=== PATIENT | female | born 1960 | race Caucasian/White ===

== ENCOUNTER → 2017-04-02 | Outpatient (CLI) | payer BC ==
--- NOTE | 2017-04-03 12:02 | MM ---
Reason for exam: screening (asymptomatic). Last mammogram was performed 1 year ago. History: Patient is postmenopausal. Family history of breast cancer in aunt. Took hormonal contraceptives for 8 years beginning at age 40. Taking estrogen for 8 years beginning at age 48. Physical Findings: A clinical breast exam by your physician is recommended on an annual basis and results should be correlated with mammographic findings. MG Screening Mammo w CAD Bilateral CC and MLO view(s) were taken. Prior study comparison: April 01, 2016, bilateral MG screening mammo w CAD. March 29, 2015, bilateral MG screening mammo w CAD. March 20, 2014, bilateral MG screening mammo w CAD. The breast tissue is heterogeneously dense. This may lower the sensitivity of mammography. Finding: There is a 4 mm circumscribed round mass located 4.8 cm from the nipple in the middle position of the left breast. Asymmetric breast tissue in the left upper breast, stable since 2012. New finding since April 01, 2016, March 29, 2015, and March 20, 2014. ASSESSMENT: Incomplete: need additional imaging evaluation, BI-RAD 0 RECOMMENDATION: Special view mammogram of the left breast. If lesion persists on supplemental views, image directed ultrasound is recommended. [facility] will attempt to contact patient to return for supplemental views and ultrasound if indicated.
== END | disposition home or self-care (01) ==
LOC: RADMAMWWP 06:54
PROVIDERS: ATTEND Family Medicine
DX: Z12.31 Encounter for screening mammogram for malignant neoplasm of breast (principal)

== ENCOUNTER → 2017-04-16 | Outpatient (CLI) | payer BC ==
--- NOTE | 2017-04-17 09:02 | MM ---
Reason for exam: additional evaluation requested from abnormal screening. Last mammogram was performed less than 1 month ago. History: Patient is postmenopausal. Family history of breast cancer in aunt. Took hormonal contraceptives for 8 years beginning at age 40. Taking estrogen for 8 years beginning at age 48. Physical Findings: Nurse did not find any significant physical abnormalities on exam. MG 3D Work Up W/Cad LT Spot compression CC, spot compression MLO, LM, and ML view(s) were taken of the left breast. Prior study comparison: April 02, 2017, bilateral MG screening mammo w CAD. April 01, 2016, bilateral MG screening mammo w CAD. Finding: There is a 5 mm circumscribed round mass in the middle position of the left breast persists. These results were verbally communicated with the patient and result sheet given to the patient on 04/16/17. ASSESSMENT: Incomplete: need additional imaging evaluation, BI-RAD 0 RECOMMENDATION: Ultrasound of the left breast.
--- NOTE | 2017-04-17 09:04 | USB ---
Reason for exam: additional evaluation requested from abnormal screening. History: Patient is postmenopausal. Family history of breast cancer in aunt. Took hormonal contraceptives for 8 years beginning at age 40. Taking estrogen for 8 years beginning at age 48. US Breast Workup Limited LT Left breast ultrasound demonstrates a 0.4 x 0.4 x 0.3cm round, cystic lesion at 12 o'clock. Simple cyst, believed to correspond to mammographic abnormality. These results were verbally communicated with the patient and result sheet given to the patient on 04/16/17. ASSESSMENT: Benign, BI-RAD 2 RECOMMENDATION: Return to routine screening mammogram schedule for both breasts.
== END | disposition home or self-care (01) ==
LOC: RADMAMWWP 14:43
PROVIDERS: ATTEND Family Medicine
DX: R92.8 Other abnormal and inconclusive findings on diagnostic imaging of breast (principal)
CPT/HCPCS: 77065; 76642; G0279

== ENCOUNTER → 2017-09-22 | Outpatient (CLI) | payer BC ==
[2017-09-22 09:27] LABS: Basophils # (A) 0.1 k/uL (0-0.2); Basophils % (A) 2 %; Eosinophils # (A) 0.7 k/uL (0-0.7); Eosinophils % (A) 11 %; HCT 44.9 % (34.0-46.0); HGB 15.1 gm/dL (11.4-16.0); Lymphocytes # (A) 1.9 k/uL (1.0-4.8); Lymphocytes % (A) 30 %; MCH 30.9 pg (25.0-35.0); MCHC 33.7 g/dL (31.0-37.0); MCV 91.7 fL (80.0-100.0); Monocytes # (A) 0.3 k/uL (0-1.0); Monocytes % (A) 5 %; Neutrophils # (A) 3.3 k/uL (1.3-7.7); Neutrophils % (A) 50 %; Platelet Count 311 k/uL (150-450); RBC 4.89 m/uL (3.80-5.40); RDW 12.7 % (11.5-15.5); WBC 6.5 k/uL (3.8-10.6)
--- NOTE | 2017-09-22 09:28 | XR ---
EXAMINATION TYPE: XR chest 2V DATE OF EXAM: 09/22/2017 COMPARISON: NONE HISTORY: Chest pain due to cough. TECHNIQUE: Frontal and lateral views of the chest are obtained. FINDINGS: There is no focal air space opacity, pleural effusion, or pneumothorax seen. The cardiac silhouette size is within normal limits. Underlying S-shaped scoliosis is present. Cholecystectomy cl ips are noted. IMPRESSION: No suspicious acute cardiopulmonary process.
[2017-09-22 10:03] LABS: Appearance,Urine Clear (Clear); Bacteria,Urine Occasional /hpf; Bilirubin,Urine Negative (Negative); Blood,Urine Negative (Negative); Color,Urine Light Yellow; Glucose,Urine (UA) Negative (Negative); Ketones,Urine Negative (Negative); Leukocyte Esterase,Urine Moderate (Negative); Nitrite,Urine Negative (Negative); PH, Urine 6.5 (5.0-8.0); Protein,Urine Negative (Negative); RBC,Urine <1 /hpf (0-5); Specific Gravity,Urine 1.008 (1.001-1.035); Squamous Epithelial Cell,Urine 4 /hpf (0-4); Urobilinogen,Urine <2.0 mg/dL (<2.0); WBC,Urine 4 /hpf (0-5)
[2017-09-22 17:39] LABS: Beta 2 Microglobulin 1.84 mg/L (0.61-2.37)
[2017-09-23 11:25] LABS: Immunoglobulin M 28.2 mg/dL (40.0-280.0)
== END | disposition home or self-care (01) ==
LOC: LABWHC1 08:33
PROVIDERS: ATTEND Otolaryngology
DX: R07.81 Pleurodynia (principal); R21 Rash and other nonspecific skin eruption; R53.83 Other fatigue
CPT/HCPCS: 36415; 71046; 81001; 82232; 82784; 85025

== ENCOUNTER → 2017-10-17 | Outpatient (CLI) | payer BC | END | disposition home or self-care (01) | LOC: LABWHC1 08:40 | PROVIDERS: ATTEND Family Medicine | DX: E83.2 Disorders of zinc metabolism (principal) | CPT/HCPCS: 36415; 84630 ==

== ENCOUNTER → 2018-04-20 | Outpatient (CLI) | payer BC ==
--- NOTE | 2018-04-24 10:01 | MM ---
Reason for exam: screening (asymptomatic). Last mammogram was performed 1 year ago. History: Patient is postmenopausal. Family history of breast cancer in maternal aunt. Took hormonal contraceptives for 8 years beginning at age 40. Took estrogen for 8 years beginning at age 48. MG Screening Mammo w CAD Bilateral CC and MLO view(s) were taken. Prior study comparison: April 16, 2017, left breast MG 3d work up w/cad LT. April 02, 2017, bilateral MG screening mammo w CAD. The breast tissue is heterogeneously dense. This may lower the sensitivity of mammography. No significant changes when compared with prior studies. ASSESSMENT: Benign, BI-RAD 2 RECOMMENDATION: Routine screening mammogram of both breasts in 1 year.
== END | disposition home or self-care (01) ==
LOC: RADMAMWWP 14:41
PROVIDERS: ATTEND Family Medicine
DX: Z12.31 Encounter for screening mammogram for malignant neoplasm of breast (principal); Z80.3 Family history of malignant neoplasm of breast
CPT/HCPCS: 77067

== ENCOUNTER → 2020-12-28 | Outpatient (CLI) | payer BC ==
--- NOTE | 2021-01-01 08:31 | MM ---
Reason for exam: screening (asymptomatic). Last mammogram was performed 2 years and 8 months ago. History: Patient is postmenopausal. Family history of breast cancer in maternal aunt. Took hormonal contraceptives for 8 years beginning at age 40. Took estrogen for 8 years beginning at age 48. Physical Findings: A clinical breast exam by your physician is recommended on an annual basis and results should be correlated with mammographic findings. MG Screening Mammo w CAD Bilateral CC and MLO view(s) were taken. Prior study comparison: April 20, 2018, bilateral MG screening mammo w CAD. April 02, 2017, bilateral MG screening mammo w CAD. April 01, 2016, bilateral MG screening mammo w CAD. The breast tissue is heterogeneously dense. This may lower the sensitivity of mammography. No significant changes when compared with prior studies. ASSESSMENT: Benign, BI-RAD 2 RECOMMENDATION: Routine screening mammogram of both breasts in 1 year.
== END | disposition home or self-care (01) ==
LOC: RADMAMWWP 16:14
PROVIDERS: ATTEND Family Medicine
DX: Z12.31 Encounter for screening mammogram for malignant neoplasm of breast (principal); Z78.0 Asymptomatic menopausal state; Z80.3 Family history of malignant neoplasm of breast
CPT/HCPCS: 77067

== ENCOUNTER → 2022-01-09 | Outpatient (CLI) | payer BC ==
--- NOTE | 2022-01-09 11:40 | MM ---
Reason for Exam: Screening (asymptomatic). Last mammogram was performed 1 year(s) and 1 month(s) ago. Patient History: Menarche at age 9. First Full-Term at age 18. Hysterectomy at age 28. Postmenopausal. Estrogen, starting at age 48 for 8 years. Hormonal Contraceptives, starting at age 40 for 8 years. Maternal aunt had breast cancer. Mother had ovarian cancer, age 67. Risk Values: Tiffanie 5 year model risk: 1.5%. NCI Lifetime model risk: 6.6%. Prior Study Comparison: 04/16/2017 Left Diagnostic Mammogram, [facility]. 04/20/2018 Bilateral Screening Mammogram, [facility]. 12/28/2020 Bilateral Screening Mammogram, [facility]. Tissue Density: The breast tissue is heterogeneously dense. This may lower the sensitivity of mammography. Findings: Analyzed By CAD. There is no suspicious group of microcalcifications or new suspicious mass in either breast. No significant change from prior exams. Overall Assessment: Negative, BI-RAD 1 Management: Screening Mammogram of both breasts in 1 year. A clinical breast exam by your physician is recommended on an annual basis and results should be correlated with mammographic findings. Electronically signed and approved by: Villa Mccarty D.O.
== END | disposition home or self-care (01) ==
LOC: RADMAMWWP 07:11
PROVIDERS: ATTEND Family Medicine
DX: Z12.31 Encounter for screening mammogram for malignant neoplasm of breast (principal); Z78.0 Asymptomatic menopausal state; Z80.3 Family history of malignant neoplasm of breast
CPT/HCPCS: 77067

== ENCOUNTER → 2023-01-12 | Outpatient (CLI) | payer BC ==
--- NOTE | 2023-01-12 08:47 | MM ---
Reason for Exam: Screening (asymptomatic). Last screening mammogram was performed 12 month(s) ago. Patient History: Menarche at age 9. First Full-Term at age 18. Hysterectomy at age 28. Postmenopausal. Estrogen, starting at age 48 for 8 years. Hormonal Contraceptives, starting at age 40 for 8 years. Maternal aunt had breast cancer. Mother had ovarian cancer, age 67. Risk Values: Tiffanie 5 year model risk: 1.6%. NCI Lifetime model risk: 6.4%. Prior Study Comparison: 04/20/2018 Bilateral Screening Mammogram, [facility]. 12/28/2020 Bilateral Screening Mammogram, [facility]. 01/09/2022 Bilateral MG screening mammo w CAD, [facility]. Tissue Density: The breast tissue is heterogeneously dense. This may lower the sensitivity of mammography. Findings: Analyzed By CAD. There is no suspicious group of microcalcifications or new suspicious mass. Overall Assessment: Negative, BI-RAD 1 Management: Screening Mammogram of both breasts in [address] [facility] will attempt to contact patient to return for supplemental views and ultrasound if indicated. Patient should continue monthly self-breast exams. A clinical breast exam by your physician is recommended on an annual basis. This exam should not preclude additional follow-up of suspicious palpable abnormalities. Note on Tiffanie scores and lifetime risk: 1. A Tiffanie score greater than 3% is considered moderate risk. If this is the case, consider specialist referral to assess eligibility for a risk reducing agent. 2. If overall lifetime risk for the development of breast cancer is 20% or higher, the patient may qualify for future screening with alternating mammogram and breast MRI. Electronically signed and approved by: Tima Marshall DO
== END | disposition home or self-care (01) ==
LOC: RADMAMWWP 08:09
PROVIDERS: ATTEND Family Medicine
DX: Z12.31 Encounter for screening mammogram for malignant neoplasm of breast (principal); Z78.0 Asymptomatic menopausal state; Z80.3 Family history of malignant neoplasm of breast
CPT/HCPCS: 77067

== ENCOUNTER → 2023-02-16 | Outpatient (CLI) | payer BC ==
--- NOTE | 2023-02-16 08:59 | CT ---
EXAMINATION TYPE: CT soft tissue neck wo/w con CT DLP: 789.4 mGycm, Automated exposure control for dose reduction was used. DATE OF EXAM: 02/16/2023 8:48 AM COMPARISON: CT sinus 08/10/2009. CLINICAL INDICATION: None, 62 years old with history of K11.20 SIALOADENITIS, UNSPECIFIED; PHH, h/o s alivary stones, pain and swelling x2 years TECHNIQUE: Standard enhanced CT of the neck before and after the intravenous administration of 100 cc of Isovue 300. Axial sections with coronal and sagittal reformats were obtained. FINDINGS: Dental amalgam increased streak artifact which limits evaluation. Brain: Visualized portions are grossly unremarkable. Orbits: Unremarkable Sinuses: Postsurgical changes of bilateral maxillary, ethmoid, sphenoid sinuses. Suprahyoid Neck: The oropharynx, oral cavity, parapharyngeal and retropharyngeal spaces are clear and symmetric. The nasopharynx is unremarkable. Infrahyoid Neck: The larynx, hypopharynx, and supraglottic area are clear and symmetric. Parotid Glands: Unremarkable. Submandibular Glands: Unremarkable. Musculoskeletal: Degenerative disc disease changes of the visualized spine are present. No acute osse ous abnormality. Lymph nodes: Several nonenlarged lymph nodes are seen along both anterior chains of the neck. Vascular structures: Visualized major arteries are patent without evidence of aneurysm. Thoracic Inlet/airway: Airway is patent. The lung apices are clear. Soft tissues/Thyroid: Thyroid and remainder of the soft tissues are unremarkable. Other: none. IMPRESSION 1. No definite evidence for an acute abnormality or salivary stones. 2. Postsurgical changes of the paranasal sinuses.
== END | disposition home or self-care (01) ==
LOC: RADCTMAIN 07:46
PROVIDERS: ATTEND Otolaryngology
DX: K11.20 Sialoadenitis, unspecified (principal); Z98.890 Other specified postprocedural states
CPT/HCPCS: 70492; Q9967

== ENCOUNTER → 2023-02-25 | Outpatient (CLI) | payer BC | END | disposition home or self-care (01) | LOC: LABWHC1 07:55 | PROVIDERS: ATTEND Otolaryngology | DX: Z00.00 Encounter for general adult medical examination without abnormal findings (principal); K11.7 Disturbances of salivary secretion | CPT/HCPCS: 36415; 86235 ==

== ENCOUNTER → 2024-01-26 | Outpatient (CLI) | payer BC ==
--- NOTE | 2024-01-28 17:27 | MM ---
Reason for Exam: Screening (asymptomatic). Last screening mammogram was performed 12 month(s) ago. Patient History: Menarche at age 9. First Full-Term at age 18. Hysterectomy at age 28. Postmenopausal. Estrogen, starting at age 48 for 8 years. Hormonal Contraceptives, starting at age 40 for 8 years. Maternal aunt had breast cancer. Mother had ovarian cancer, age 67. Risk Values: Tiffanie 5 year model risk: 1.6%. NCI Lifetime model risk: 6.2%. Prior Study Comparison: 12/28/2020 Bilateral Screening Mammogram, [facility]. 01/09/2022 Bilateral MG screening mammo w CAD, [facility]. 01/12/2023 Bilateral MG screening mammo w CAD, [facility]. Tissue Density: The breasts are heterogeneously dense, which may obscure small masses. Findings: Analyzed By CAD. There is no suspicious group of microcalcifications or new suspicious mass in either breast. Overall Assessment: Negative, BI-RAD 1 Management: Screening Mammogram of both breasts in 1 year. . Patient should continue monthly self-breast exams. A clinical breast exam by your physician is recommended on an annual basis. This exam should not preclude additional follow-up of suspicious palpable abnormalities. Note on Tiffanie scores and lifetime risk: 1. A Tiffanie score greater than 3% is considered moderate risk. If this is the case, consider specialist referral to assess eligibility for a risk reducing agent. 2. If overall lifetime risk for the development of breast cancer is 20% or higher, the patient may qualify for future screening with alternating mammogram and breast MRI. [facility], , 01/28/2024 5:24 PM. Electronically signed and approved by: Doni Sanchez M.D. Radiologist
== END | disposition home or self-care (01) ==
LOC: RADMAMWWP 07:38
PROVIDERS: ATTEND Family Medicine
CPT/HCPCS: 77063; 77067